=== PATIENT | female | born 1975 | race Caucasian/White ===

== ENCOUNTER 2018-02-13 10:10 | Emergency (ER) | payer OTHER ==
[2018-02-13] MEDS ORDERED: FAMOTIDINE 20 MG TAB PO (11:09)
[2018-02-13 11:37] LABS: ADD UMIC YES; UR ASCORBIC ACID NEGATIVE (NEGATIVE); UR BACTERIA FEW /HPF (NONE SEEN); UR BILIRUBIN (Dip) NEGATIVE (NEGATIVE); UR BLOOD (Dip) NEGATIVE (NEGATIVE); UR CLARITY SLIGHTLY CLOUDY (CLEAR); UR COLOR YELLOW (YELLOW); UR GLUCOSE (Dip) NEGATIVE (NEGATIVE); UR KETONES (Dip) 2+ mg/dL (NEGATIVE); UR LEUKOCYTE ESTERASE (Dip) NEGATIVE Leu/ul (NEGATIVE); UR MUCUS MODERATE /HPF (NONE SEEN); UR NITRITE (Dip) NEGATIVE (NEGATIVE); UR RBC 1 /HPF (0-5); UR SQUAMOUS EPITHELIAL CELL FEW /HPF (FEW); UR TOTAL PROTEIN (Dip) 2+ mg/dl (NEGATIVE); UR UROBILINOGEN (Dip) NEGATIVE (NEGATIVE); UR WBC 3 /HPF (0-5)
[2018-02-13] MEDS ORDERED: ONDANSETRON 4 MG INJ (11:39)
[2018-02-13] MEDS ORDERED: morphine 2 MG INJ (11:39)
[2018-02-13 11:42] LABS: ADD MAN DIFF? NO
[2018-02-13 11:47] LABS: BASOPHIL # 0.1 10^3/ul (0.0-0.1); BASOPHILS % 0.5 % (0.0-2.0); HEMATOCRIT 43.6 % (37.0-47.0); HEMOGLOBIN 15.5 g/dl (12.0-16.0); LYMPHOCYTES # 1.3 10^3/ul (0.8-2.9); LYMPHOCYTES % 6.1 % (15.0-51.0); MEAN CORPUSCULAR HEMOGLOBIN 31.3 pg (29.0-33.0); MEAN CORPUSCULAR HGB CONC 35.6 g/dl (32.0-37.0); MEAN CORPUSCULAR VOLUME 87.9 fl (82.0-101.0); MEAN PLATELET VOLUME 10.2 fl (7.4-10.4); MONOCYTE # 0.5 10^3/ul (0.3-0.9); MONOCYTES % 2.5 % (0.0-11.0); NEUTROPHIL # 19.2 10^3/ul (1.6-7.5); NEUTROPHILS % 90.3 % (39.0-77.0); PLATELET COUNT 388 10^3/UL (140-415); RED BLOOD COUNT 4.96 10^6/ul (4.20-5.40); RED CELL DISTRIBUTION WIDTH 12.4 % (11.5-14.5)
[2018-02-13 11:47] LABS: WHITE BLOOD COUNT 21.2 10^3/ul (4.8-10.8)
[2018-02-13] MEDS: SOD CHLORIDE 0.9% 1,000 ML IV ×2 (11:52→13:05)
[2018-02-13] MEDS: morphine 2 MG INJ IV (11:53)
[2018-02-13] MEDS: ONDANSETRON 4 MG INJ IV (11:53)
[2018-02-13] MEDS: CIPROFLOXACIN 400MG/D5W 200 ML IVPB (11:53)
[2018-02-13] MEDS: FAMOTIDINE 20 MG INJ IV (12:03)
[2018-02-13 12:30] LABS: ALANINE AMINOTRANSFERASE 19 IU/L (13-69); ALBUMIN 4.6 g/dl (3.3-4.9); ALKALINE PHOSPHATASE 84 IU/L (42-121); ANION GAP 14 (5-13); ASPARTATE AMINO TRANSFERASE 18 IU/L (15-46); BILIRUBIN,INDIRECT 0.5 mg/dl (0-1.1); BILIRUBIN,TOTAL 0.5 mg/dl (0.2-1.3); BLOOD UREA NITROGEN 11 mg/dl (7-20); CALCIUM 9.8 mg/dl (8.4-10.2); CARBON DIOXIDE 23 mmol/L (21-31); CHLORIDE 101 mmol/L (97-110); CREATININE 0.46 mg/dl (0.44-1.00); Estimated GFR > 60 mL/min (>60); GLUCOSE 137 mg/dl (70-220); LIPASE 103 U/L (23-300); POTASSIUM 3.8 mmol/L (3.5-5.1); SODIUM 138 mmol/L (135-144); TOTAL PROTEIN 7.3 g/dl (6.1-8.1)
[2018-02-13] MEDS: HYDROmorphONE 0.5 MG/0.5 ML SYG IV (13:05)
== END 2018-02-13 15:41 | disposition home or self-care (01) ==
LOC: FTE 10:10
DX: A09 Infectious gastroenteritis and colitis, unspecified (principal)
CPT/HCPCS: 36415; 80053; 81001; 81025; 83690; 85025; 96374; 96375; 99284-25